=== PATIENT | male | born 1950 | race Caucasian/White ===

== ENCOUNTER → 2021-04-27 | Outpatient (REF) | payer OTHER | LOC: M LAB REF 12:16 | PROVIDERS: ATTEND Internal Medicine | DX: R59.0 Localized enlarged lymph nodes (principal) ==

== ENCOUNTER → 2021-05-05 | Outpatient (CLI) | payer OTHER ==
[~2021-05-05] MED LIST: ISOVUE-370 76% 100ML VIAL As Ordered ONE
== END ==
LOC: M RAD 14:04
PROVIDERS: ATTEND Internal Medicine
DX: R59.0 Localized enlarged lymph nodes (principal); D37.05 Neoplasm of uncertain behavior of pharynx; J43.9 Emphysema, unspecified; I70.0 Atherosclerosis of aorta; I25.10 Atherosclerotic heart disease of native coronary artery without angina pectoris; J84.9 Interstitial pulmonary disease, unspecified; I65.23 Occlusion and stenosis of bilateral carotid arteries
CPT/HCPCS: 70491; 71260; Q9967

== ENCOUNTER → 2021-05-10 | Outpatient (REF) | payer OTHER ==
[~2021-05-10] MED LIST changes: +ACET1TAB16; +ASPI-255 PO; +B-122500 PO; -ISOVUE-370 76% 100ML VIAL As Ordered ONE; +NOXI1TAB PO
== END ==
LOC: M LAB REF 16:28
PROVIDERS: ATTEND Otolaryngology
DX: C09.9 Malignant neoplasm of tonsil, unspecified (principal)

== ENCOUNTER → 2021-05-23 | Outpatient (CLI) | payer OTHER | LOC: M RAD 06:58 | PROVIDERS: ATTEND Internal Medicine | DX: Z13.6 Encounter for screening for cardiovascular disorders (principal) ==

== ENCOUNTER → 2021-06-01 | Outpatient (CLI) | payer OTHER ==
[~2021-06-01] MED LIST changes: -ASPI-255 PO; -B-122500 PO; -NOXI1TAB PO
== END ==
LOC: M ONCR 14:51
PROVIDERS: ATTEND General Practice
DX: C09.9 Malignant neoplasm of tonsil, unspecified (principal); F17.210 Nicotine dependence, cigarettes, uncomplicated
CPT/HCPCS: 31575; G0463

== ENCOUNTER → 2021-06-12 | Outpatient (CLI) | payer OTHER ==
[~2021-06-12] MED LIST changes: +ASPI-255 PO; +B-122500 PO; +LIDOCAINE 1% MDV 20ML VIAL As Ordered ONE; +MIDAZOLAM INJ 2MG/2ML VIAL (J2250 PER 1MG) As Ordered ONE; +NOXI1TAB PO; +NS 1,000 ML IV SCH; +ceFAZolin 2 GM/D5W 50 ML IV BAG (J0690 PER 500MG) As Ordered ONE; +ceFAZolin SOD 2 GM in IV 1 EA IV ONE; +diphenhydrAMINE 50MG/ML VIAL (J1200) As Ordered ONE; +fentaNYL 100 MCG/2 ML INJECTION As Ordered ONE
[2021-06-12 09:03] LABS: INR 0.88; PROTHROMBIN TIME 12.3 SECONDS (12.7-14.5)
[2021-06-12 11:30] VITALS: BP 170/81
== END ==
LOC: M IRPRO 08:16
PROVIDERS: ATTEND Radiology Diagnostic Radiology
DX: C09.9 Malignant neoplasm of tonsil, unspecified (principal)
CPT/HCPCS: 36561; 85610; 99152; 99153; C1769; C1788; C1894; J0690; J1200; J1642; J1644; J2250; J3010

== ENCOUNTER → 2021-06-26 | Outpatient (CLI) | payer OTHER ==
[~2021-06-26] MED LIST changes: -LIDOCAINE 1% MDV 20ML VIAL As Ordered ONE; -MIDAZOLAM INJ 2MG/2ML VIAL (J2250 PER 1MG) As Ordered ONE; -NS 1,000 ML IV SCH; -ceFAZolin 2 GM/D5W 50 ML IV BAG (J0690 PER 500MG) As Ordered ONE; -ceFAZolin SOD 2 GM in IV 1 EA IV ONE; -diphenhydrAMINE 50MG/ML VIAL (J1200) As Ordered ONE; -fentaNYL 100 MCG/2 ML INJECTION As Ordered ONE
== END ==
LOC: M PLARAD 07:31
PROVIDERS: ATTEND General Practice
DX: C09.0 Malignant neoplasm of tonsillar fossa (principal); R59.0 Localized enlarged lymph nodes
CPT/HCPCS: 78815; A9552

== ENCOUNTER → 2021-06-27 | Outpatient (POV) | payer OTHER ==
[~2021-06-27] VITALS: Ht 188 cm; Wt 81.3 kg
[~2021-06-27] MED LIST changes: +LIDO1CRE2 TOP; +LIDO2SOL17 PO; +OXYC1SOL3 PO
[2021-06-27 13:05] VITALS: BP 164/80
== END ==
LOC: M IRPOV 12:57
PROVIDERS: ATTEND Radiology Diagnostic Radiology
DX: Z45.2 Encounter for adjustment and management of vascular access device (principal)

== ENCOUNTER → 2021-06-28 | Outpatient (CLI) | payer OTHER ==
[~2021-06-28] MED LIST changes: +ONDA-84 PO; +PROC10TA5 PO
== END ==
LOC: M ONCR 11:00
PROVIDERS: ATTEND General Practice
DX: C09.0 Malignant neoplasm of tonsillar fossa (principal)

== ENCOUNTER → 2021-07-04 | Outpatient (POV) | payer OTHER ==
[~2021-07-04] VITALS: Ht 188 cm; Wt 81.4 kg
[~2021-07-04] MED LIST changes: -ONDA-84 PO; -PROC10TA5 PO
[2021-07-04 10:25] VITALS: BP 124/79
== END ==
LOC: M IRPOV 10:12
PROVIDERS: ATTEND Radiology Diagnostic Radiology
DX: C09.9 Malignant neoplasm of tonsil, unspecified (principal); F17.210 Nicotine dependence, cigarettes, uncomplicated; Z79.82 Long term (current) use of aspirin

== ENCOUNTER 2021-07-12 09:24 | Outpatient (RCR) | payer OTHER ==
[~2021-07-12 09:24] MED LIST changes: +ONDA-84 PO; +PROC10TA5 PO
[2021-07-17] MEDS ORDERED: PROC10TA5 (08:01)
[2021-07-17] MEDS ORDERED: OXYC5SOL11 (08:01)
[2021-07-17] MEDS ORDERED: ONDA-84 (08:01)
== END 2021-07-13 ==
LOC: M ONCR 09:24
PROVIDERS: ATTEND General Practice
DX: C09.0 Malignant neoplasm of tonsillar fossa (principal)
CPT/HCPCS: 77300; 77301; 77334; 77338; 77386; 77470; G0463

== ENCOUNTER 2021-07-31 08:27 | Observation (INO) | payer OTHER ==
[~2021-07-31] VITALS: Ht 188 cm; Wt 75.3 kg
[~2021-07-31 08:27] MED LIST changes: -ACET1TAB16; +ACET300T48; +ONDA-84; +OXYC5SOL11; +PROC10TA5
[2021-07-31 08:57] LABS: BASO % 0.7 % (0.0-1.0); EOS # 0.1 10^3/uL (0.0-0.5); EOS % 1.4 % (0.0-3.0); HEMATOCRIT 37.4 % (42.0-52.0); HEMOGLOBIN 13.2 g/dl (13.5-17.5); LYMPH # 0.9 10^3/uL (1.5-5.0); LYMPH % 15.1 % (24.0-44.0); MEAN CORPUSCULAR HEMOGLOBIN 35.8 pg (27.0-33.0); MEAN CORPUSCULAR HGB CONC 35.3 g/dl (32.0-36.5); MEAN CORPUSCULAR VOLUME 101.4 fl (80.0-96.0); MONO # 0.6 10^3/uL (0.0-0.8); MONO % 10.7 % (2.0-8.0); NEUTROPHILS # 4.2 10^3/uL (1.5-8.5); NEUTROPHILS % 71.8 % (36.0-66.0); PLATELET COUNT, AUTOMATED 154 10^3/uL (150-450); RED BLOOD COUNT 3.69 10^6/uL (4.30-6.10); WHITE BLOOD COUNT 5.8 10^3/uL (4.0-10.0)
[2021-07-31] MEDS: ENOXAPARIN 40MG/0.4ML SYRINGE (J1650 PER 10MG) SC SCH (09:00)
[2021-07-31 09:09] LABS: INR 0.91; PROTHROMBIN TIME 12.7 SECONDS (12.7-14.5)
[2021-07-31 09:10] LABS: PARTIAL THROMBOPLASTIN TIME 25.8 SECONDS (25.9-37.0)
[2021-07-31 09:30] LABS: CK-MB VALUE MASS 1.1 NG/ML (<3.6); MB/CK RELATIVE INDEX 2.39 (< OR =4)
[2021-07-31 09:38] LABS: BLOOD UREA NITROGEN 16 MG/DL (7-18); CARBON DIOXIDE LEVEL 25 MEQ/L (21-32); CHLORIDE LEVEL 98 MEQ/L (98-107); CREATININE FOR GFR 0.77 MG/DL (0.70-1.30); ETHYL ALCOHOL (ETHANOL) < 0.003 % (0.000-0.010); FREE T4 1.18 NG/DL (0.76-1.46); GLOMERULAR FILTRATION RATE > 60.0 (>49); GLUCOSE, FASTING 110 MG/DL (70-100); MAGNESIUM LEVEL 1.7 MG/DL (1.8-2.4); POTASSIUM SERUM 3.7 MEQ/L (3.5-5.1); SODIUM LEVEL 131 MEQ/L (136-145); THYROID STIMULATING HORMONE 0.961 uIU/ML (0.358-3.740)
[2021-07-31 09:39] LABS: RSV AMPLIFICATION NEGATIVE (NEGATIVE)
[2021-07-31] MEDS ORDERED: HOME MED LIST COMPLETE! XX SCH (10:20)
[2021-07-31] MEDS ORDERED: NS 1,000 ML IV SCH (12:15)
[2021-07-31] MEDS ORDERED: MAG SULF 1GM/100ML (MAG RUN) 1 GM in IV 1 EA IV ONE (14:20)
[2021-07-31 16:00] VITALS: BP 161/90
[2021-07-31 20:00] VITALS: BP 143/73
[2021-08-01] VITALS: BP 147/66
[2021-08-01 04:00] VITALS: BP 137/60
[2021-08-01 05:43] LABS: BLOOD UREA NITROGEN 14 MG/DL (7-18); CALCIUM LEVEL 8.9 MG/DL (8.8-10.2); CARBON DIOXIDE LEVEL 30 MEQ/L (21-32); CHLORIDE LEVEL 99 MEQ/L (98-107); CREATININE FOR GFR 0.72 MG/DL (0.70-1.30); GLOMERULAR FILTRATION RATE > 60.0 (>49); GLUCOSE, FASTING 84 MG/DL (70-100); MAGNESIUM LEVEL 1.9 MG/DL (1.8-2.4); POTASSIUM SERUM 4.4 MEQ/L (3.5-5.1); SODIUM LEVEL 133 MEQ/L (136-145)
[2021-08-01] MEDS: ENOXAPARIN 40MG/0.4ML SYRINGE (J1650 PER 10MG) SC SCH (08:25)
[2021-08-01 08:30] VITALS: BP_SYST 135; BP_SYST 179; BP_SYST 84; BP_DIAS 51; BP_DIAS 79; BP_DIAS 95
[2021-08-01 08:33] VITALS: BP 177/81
[2021-08-01] MEDS ORDERED: NS 1,000 ML IV SCH (08:45)
[2021-08-01 12:37] VITALS: BP_SYST 128; BP_SYST 134; BP_SYST 140; BP_DIAS 60; BP_DIAS 64
[2021-08-01 12:38] VITALS: BP 148/67
[2021-08-07] MEDS ORDERED: LEVO25TA5 PO (09:08)
[2021-08-07] MEDS ORDERED: K-TA10TA2 PO (09:08)
[2021-08-07] MEDS ORDERED: CEPH500C PO (10:34)
[2021-08-14] MEDS ORDERED: MAGICMW SSP (08:49)
== END 2021-08-01 15:35 | disposition home health service (06) ==
LOC: M ED 08:27 → M ED INP 08:28 → UNDOADMOB 13:15 → INTOOBSV 13:15 → M ED INP 13:15 → ENRESERV 13:50 → M PCU 15:38 → M ED INP 15:38 → M PCU 15:38
PROVIDERS: ADMIT Internal Medicine; ATTEND Internal Medicine
DX: R40.4 Transient alteration of awareness (principal); C09.9 Malignant neoplasm of tonsil, unspecified; T45.1X5A Adverse effect of antineoplastic and immunosuppressive drugs, initial encounter; R55 Syncope and collapse; F17.218 Nicotine dependence, cigarettes, with other nicotine-induced disorders; G99.8 Other specified disorders of nervous system in diseases classified elsewhere; E83.42 Hypomagnesemia
CPT/HCPCS: 36415; 36591; 70450; 70551; 71045; 77336; 77386; 80053; 82077; 82550; 82553; 83605; 83735; 84439; 84443; 84484; 85025; 85610; 85730; 87040; 87631; 93005; 93041; 94760; 96361; 96365; 96372; 99285; G0378; J1642; J1650; J3475

== ENCOUNTER 2021-08-11 09:45 | Outpatient (RCR) | payer OTHER ==
[~2021-08-11 09:45] MED LIST changes: +CEPH500C PO; +K-TA10TA2 PO; +LEVO25TA5 PO
[2021-08-14] MEDS ORDERED: MAGICMW SSP (08:49)
== END 2021-08-12 ==
LOC: M ONCR 09:45
PROVIDERS: ATTEND General Practice
DX: C09.0 Malignant neoplasm of tonsillar fossa (principal)

== ENCOUNTER 2021-08-29 08:53 | Outpatient (RCR) | payer OTHER ==
[~2021-08-29 08:53] MED LIST changes: +FLUC100T3 PO; +MAGICMW SSP
[2021-09-06] MEDS ORDERED: NYST50SS SS (10:27)
[2021-09-06] MEDS ORDERED: OXYC1SOL3 PO (10:27)
== END 2021-09-12 ==
LOC: M ONCR 08:53
PROVIDERS: ATTEND General Practice
DX: C09.0 Malignant neoplasm of tonsillar fossa (principal)
CPT/HCPCS: 77336; 77385; 77386; G0463

== ENCOUNTER → 2021-09-06 | Outpatient (CLI) | payer OTHER ==
[~2021-09-06] MED LIST changes: +NYST50SS SS
== END ==
LOC: M ONCR 09:46
PROVIDERS: ATTEND General Practice
DX: C09.0 Malignant neoplasm of tonsillar fossa (principal); K12.33 Oral mucositis (ulcerative) due to radiation; L59.8 Other specified disorders of the skin and subcutaneous tissue related to radiation; Z92.3 Personal history of irradiation

== ENCOUNTER → 2021-09-20 | Outpatient (CLI) | payer OTHER ==
[~2021-09-20] MED LIST changes: +AMOX875T2 PO; +PENT400T23 PO; +[UNRECOGNIZED DRUG - CODE] PO
== END ==
LOC: M ONCR 09:48
PROVIDERS: ATTEND General Practice
DX: L85.3 Xerosis cutis (principal); M26.609 Unspecified temporomandibular joint disorder, unspecified side; K12.30 Oral mucositis (ulcerative), unspecified; B37.0 Candidal stomatitis

== ENCOUNTER → 2021-10-04 | Outpatient (CLI) | payer OTHER ==
[~2021-10-04] MED LIST changes: -PENT400T23 PO; -[UNRECOGNIZED DRUG - CODE] PO
== END ==
LOC: M ONCR 09:45
PROVIDERS: ATTEND General Practice
DX: Z08 Encounter for follow-up examination after completed treatment for malignant neoplasm (principal); L59.8 Other specified disorders of the skin and subcutaneous tissue related to radiation; L58.9 Radiodermatitis, unspecified; Z92.3 Personal history of irradiation; Z93.1 Gastrostomy status

== ENCOUNTER → 2021-10-26 | Outpatient (CLI) | payer OTHER ==
[~2021-10-26] MED LIST changes: +PENT400T23 PO; +[UNRECOGNIZED DRUG - CODE] PO
== END ==
LOC: M ONCR 13:54
PROVIDERS: ATTEND General Practice
DX: B37.0 Candidal stomatitis (principal); L85.9 Epidermal thickening, unspecified; K13.79 Other lesions of oral mucosa

== ENCOUNTER → 2021-11-03 | Outpatient (CLI) | payer OTHER | LOC: M ONCR 10:06 | PROVIDERS: ATTEND General Practice | DX: L81.9 Disorder of pigmentation, unspecified (principal); M27.2 Inflammatory conditions of jaws ==

== ENCOUNTER → 2021-12-12 | Outpatient (CLI) | payer OTHER | LOC: M ONCR 10:21 | PROVIDERS: ATTEND General Practice | DX: C09.0 Malignant neoplasm of tonsillar fossa (principal); M27.2 Inflammatory conditions of jaws; Y84.2 Radiological procedure and radiotherapy as the cause of abnormal reaction of the patient, or of later complication, without mention of misadventure at the time of the procedure; Z92.21 Personal history of antineoplastic chemotherapy; Z92.3 Personal history of irradiation; Z87.891 Personal history of nicotine dependence; Z79.890 Hormone replacement therapy; Z79.891 Long term (current) use of opiate analgesic; Z79.899 Other long term (current) drug therapy | CPT/HCPCS: 31575; G0463 ==

== ENCOUNTER → 2022-01-01 | Outpatient (CLI) | payer OTHER | LOC: M PLARAD 11:51 | PROVIDERS: ATTEND General Practice | DX: C09.0 Malignant neoplasm of tonsillar fossa (principal) | CPT/HCPCS: 78815; A9552 ==

== ENCOUNTER → 2022-01-03 | Outpatient (CLI) | payer OTHER | LOC: M ONCR 09:38 | PROVIDERS: ATTEND General Practice | DX: C09.0 Malignant neoplasm of tonsillar fossa (principal); Z87.891 Personal history of nicotine dependence; Z79.890 Hormone replacement therapy; Z79.899 Other long term (current) drug therapy; Z92.21 Personal history of antineoplastic chemotherapy; Z92.3 Personal history of irradiation | CPT/HCPCS: 88173; G0463 ==

== ENCOUNTER → 2022-01-23 | Outpatient (CLI) | payer OTHER ==
[~2022-01-23] MED LIST changes: +LIDOCAINE 1% MDV 20ML VIAL As Ordered ONE
[2022-01-23 13:55] VITALS: BP 182/80
== END ==
LOC: M IRPRO 13:05
PROVIDERS: ATTEND Otolaryngology
DX: C09.9 Malignant neoplasm of tonsil, unspecified (principal)

== ENCOUNTER → 2022-02-02 | Outpatient (CLI) | payer OTHER ==
[~2022-02-02] MED LIST changes: -LIDOCAINE 1% MDV 20ML VIAL As Ordered ONE
== END ==
LOC: M ONCR 10:19
PROVIDERS: ATTEND General Practice
DX: C09.0 Malignant neoplasm of tonsillar fossa (principal); Z79.891 Long term (current) use of opiate analgesic; Z87.891 Personal history of nicotine dependence; Z92.21 Personal history of antineoplastic chemotherapy; Z92.3 Personal history of irradiation

== ENCOUNTER → 2022-02-07 | Outpatient (CLI) | payer OTHER ==
[~2022-02-07] MED LIST changes: +LIDOCAINE 1% MDV 20ML VIAL As Ordered ONE
== END ==
LOC: M RAD 08:43
PROVIDERS: ATTEND Otolaryngology
DX: R22.1 Localized swelling, mass and lump, neck (principal); C09.9 Malignant neoplasm of tonsil, unspecified

== ENCOUNTER → 2022-03-16 | Outpatient (CLI) | payer OTHER ==
[~2022-03-16] MED LIST changes: +HYDR1LIQ PO; -LIDOCAINE 1% MDV 20ML VIAL As Ordered ONE
== END ==
LOC: M ONCR 13:42
PROVIDERS: ATTEND General Practice
DX: C09.9 Malignant neoplasm of tonsil, unspecified (principal); C77.9 Secondary and unspecified malignant neoplasm of lymph node, unspecified

== ENCOUNTER → 2022-04-17 | Outpatient (CLI) | payer OTHER ==
[~2022-04-17] MED LIST changes: +HYDR1LIQ PEG; +NYST-38 SS; -NYST50SS SS
== END ==
LOC: M ONCR 14:11
PROVIDERS: ATTEND General Practice
DX: C09.0 Malignant neoplasm of tonsillar fossa (principal)

== ENCOUNTER → 2022-05-08 | Outpatient (CLI) | payer OTHER ==
[~2022-05-08] MED LIST changes: +FENT1DIS14 TOP
== END ==
LOC: M ONCR 12:53
PROVIDERS: ATTEND General Practice
DX: C09.0 Malignant neoplasm of tonsillar fossa (principal); Z93.1 Gastrostomy status; Z79.891 Long term (current) use of opiate analgesic

== ENCOUNTER → 2022-05-29 | Outpatient (CLI) | payer OTHER ==
[~2022-05-29] MED LIST changes: +LIDO15SO4 PO; -LIDO2SOL17 PO
== END ==
LOC: M ONCR 13:21
PROVIDERS: ATTEND General Practice
DX: C09.0 Malignant neoplasm of tonsillar fossa (principal); R22.0 Localized swelling, mass and lump, head; Z79.891 Long term (current) use of opiate analgesic; Z87.891 Personal history of nicotine dependence; Z92.21 Personal history of antineoplastic chemotherapy; Z92.3 Personal history of irradiation

== ENCOUNTER → 2022-06-08 | Outpatient (CLI) | payer OTHER ==
[~2022-06-08] MED LIST changes: +AMOX400S PO; +DEXA0.5E2 PO; +DEXA4TA PO; +LACT20EL PO
== END ==
LOC: M ONCR 15:23
PROVIDERS: ATTEND General Practice
DX: S01.80XA Unspecified open wound of other part of head, initial encounter (principal); K59.00 Constipation, unspecified; Z79.891 Long term (current) use of opiate analgesic; Z93.1 Gastrostomy status

== ENCOUNTER → 2022-06-20 | Outpatient (CLI) | payer OTHER | LOC: M ONCR 13:21 | PROVIDERS: ATTEND General Practice | DX: S01.90XA Unspecified open wound of unspecified part of head, initial encounter (principal); R22.0 Localized swelling, mass and lump, head; R51.9 Headache, unspecified; L53.9 Erythematous condition, unspecified ==

== ENCOUNTER 2022-06-27 15:02 | Observation (INO) | payer OTHER ==
[2022-06-27] MEDS ORDERED: SCOPOLAMINE 1MG TRANSDERMAL PATCH TOP PRN (15:15)
[2022-06-27] MEDS ORDERED: LORazepam 1 MG TAB PO PRN (15:15)
[2022-06-27 15:37] VITALS: BP 119/81
[2022-06-27] MEDS ORDERED: ONDANSETRON 4MG TAB PEG PRN (16:35)
[2022-06-27] MEDS: MORPHINE 10MG/0.5ML ORAL CONCENTRATE SOLUTION U/D SL PRN ×2 (18:36→22:27)
[2022-06-27] MEDS: LORazepam 1 MG TAB FT PRN ×2 (18:36→22:27)
[2022-06-28] MEDS: MORPHINE 10MG/0.5ML ORAL CONCENTRATE SOLUTION U/D SL PRN ×2 (05:38→15:31)
[2022-06-28] MEDS: LORazepam 1 MG TAB FT PRN ×2 (05:38→10:21)
== END 2022-06-28 17:13 | disposition expired ==
LOC: INTOOBSV 15:26 → M MSPAV 15:26
PROVIDERS: ADMIT Internal Medicine; ATTEND Internal Medicine
DX: C09.9 Malignant neoplasm of tonsil, unspecified (principal); R41.82 Altered mental status, unspecified; C79.89 Secondary malignant neoplasm of other specified sites; G89.3 Neoplasm related pain (acute) (chronic); Z92.21 Personal history of antineoplastic chemotherapy; Z92.3 Personal history of irradiation; R64 Cachexia; R53.83 Other fatigue; R53.1 Weakness; E43 Unspecified severe protein-calorie malnutrition; R13.10 Dysphagia, unspecified; R06.82 Tachypnea, not elsewhere classified; Z51.5 Encounter for palliative care; Z79.899 Other long term (current) drug therapy; Z79.891 Long term (current) use of opiate analgesic
CPT/HCPCS: G0378; G0463

== ENCOUNTER → 2022-06-27 | Outpatient (CLI) | payer OTHER | LOC: M ONCR 14:24 | PROVIDERS: ATTEND General Practice | DX: R23.1 Pallor (principal); R53.83 Other fatigue; R25.8 Other abnormal involuntary movements; Z66 Do not resuscitate ==